=== PATIENT | female | born 1995 ===

== ENCOUNTER 2023-01-04 17:45 | Day surgery (SDC) | payer SELFPAY ==
[~2023-01-04] VITALS: Ht 154.9 cm; Wt 75.4 kg
[~2023-01-04 17:45] MED LIST: ceFAZolin INJECTION 2,000 MG in NS (IVPB) 50 ML IV ONE; metroNIDAZOLE 500MG/100ML IVPB 100 ML IV ONE
[2023-01-04 18:11] VITALS: BP 109/59
[2023-01-04] MEDS: NS IV 1000 ML 1,000 ML IV SCH (18:22)
[2023-01-04 20:17] VITALS: BP 117/72
[2023-01-05] VITALS (13 sets, daily range): BP systolic 90–109; BP diastolic 42–56
[2023-01-05] MEDS: NS IV 1000 ML 1,000 ML IV SCH ×2 (01:12→09:55)
[2023-01-05 06:11] LABS: BASOPHILS % (AUTO) 0 % (0-10); EOSINOPHILS # (AUTO) 0.1 10^3/uL (0.0-0.3); EOSINOPHILS % (AUTO) 1 % (0-10); HEMATOCRIT 31 % (35-52); HEMOGLOBIN 10.4 g/dL (11.5-16.0); LYMPHOCYTES # (AUTO) 2.9 10^3/uL (1.0-4.0); LYMPHOCYTES % (AUTO) 37 % (12-44); MEAN CORPUSCULAR HEMOGLOBIN 28 pg (25-34); MEAN CORPUSCULAR HGB CONC 33 g/dL (32-36); MEAN CORPUSCULAR VOLUME 83 fL (80-99); MEAN PLATELET VOLUME 9.2 fL (9.0-12.2); MONOCYTES # (AUTO) 0.4 10^3/uL (0.0-1.0); MONOCYTES % (AUTO) 5 % (0-12); NEUTROPHILS # (AUTO) 4.6 10^3/uL (1.8-7.8); NEUTROPHILS % (AUTO) 57 % (42-75); PLATELET COUNT 289 10^3/uL (130-400)
[2023-01-05 06:22] LABS: ALBUMIN 3.4 GM/DL (3.2-4.5); POTASSIUM 3.9 MMOL/L (3.6-5.0)
[2023-01-05 06:23] LABS: CALCIUM 8.4 MG/DL (8.5-10.1)
[2023-01-05 06:26] LABS: BILIRUBIN,TOTAL 0.3 MG/DL (0.1-1.0)
[2023-01-05 06:28] LABS: CREATININE SERUM 0.6 MG/DL (0.60-1.30)
[2023-01-05] MEDS ORDERED: metroNIDAZOLE 500MG/100ML IVPB 0 ML ONE (06:51)
[2023-01-05] MEDS ORDERED: NS (IVPB) 100 ML ONE (06:52)
[2023-01-05] MEDS ORDERED: ceFAZolin INJECTION 0 MG ONE (06:52)
[2023-01-05] MEDS ORDERED: metroNIDAZOLE 500MG/100ML IVPB 100 ML ONE (07:01)
[2023-01-05] MEDS ORDERED: ceFAZolin INJECTION 2,000 MG ONE (07:05)
[2023-01-05] MEDS ORDERED: LACTATED RINGERS 1,000 ML IV PRN (07:15)
--- NOTE | 2023-01-05 07:25 | History & Physical-Surgical ---
HPO-Surgical History of Present Illness Chief Complaint: Missed Ab/ Suspected molar Diagnosis/Surgical Indication: Suspected molar Procedure: Suction D and C Date of Surgery: Jan 05, 2023 Allergies and Home Medications Allergies Coded Allergies: Penicillins (Verified Allergy, Mild, Rash, 01/04/23) Patient Home Medication List Home Medication List Reviewed: Yes Past Vkcyinn-Bplyol-Bnfcko Hx Patient Social History Marrital Status: Smoking Status: Never a Smoker Have you traveled recently?: No Alcohol Use?: No Pt feels they are or have been: No Seasonal Allergies Seasonal Allergies: No Surgeries Yes Appendectomy Reproductive System : Yes Genitourinary No Gastrointestinal Yes Gastroesophageal Reflux Musculoskeletal No Endocrine History of Endocrine Disorders: No Are Your Blood Sugars Over 250: No HEENT History of HEENT Disorders: No Loss of Vision: Denies Hearing Impairment: Denies Cancer No Psychosocial History of Psychiatric Problem: No Integumentary History of Skin or Integumenta: No Blood Transfusions History of Blood Disorders: No Adverse Reaction to a Blood Tr: No Reviewed Nursing Assessment Reviewed/Agree w Nursing PMH: No Family Medical History Significant Family History: No Pertinent Family Hx Exam Vital Signs Vital Signs 01/05/23 01:26 Temp 36.9 Pulse 68 Resp 15 B/P (MAP) 99/50 (66) Pulse Ox 98 O2 Delivery Room Air Capillary Refill : Labs Laboratory Tests Test 01/05/23 05:59 Range/Units White Blood Count 8.0 4.3-11.0 10^3/uL Red Blood Count 3.76 L 3.80-5.11 10^6/uL Hemoglobin 10.4 L 11.5-16.0 g/dL Hematocrit 31 L 35-52 % Mean Corpuscular Volume 83 80-99 fL Mean Corpuscular Hemoglobin 28 25-34 pg Mean Corpuscular Hemoglobin Concent 33 32-36 g/dL Red Cell Distribution Width 13.7 10.0-14.5 % Platelet Count 289 130-400 10^3/uL Mean Platelet Volume 9.2 9.0-12.2 fL Immature Granulocyte % (Auto) 0 % Neutrophils (%) (Auto) 57 42-75 % Lymphocytes (%) (Auto) 37 12-44 % Monocytes (%) (Auto) 5 0-12 % Eosinophils (%) (Auto) 1 0-10 % Basophils (%) (Auto) 0 0-10 % Neutrophils # (Auto) 4.6 1.8-7.8 10^3/uL Lymphocytes # (Auto) 2.9 1.0-4.0 10^3/uL Monocytes # (Auto) 0.4 0.0-1.0 10^3/uL Eosinophils # (Auto) 0.1 0.0-0.3 10^3/uL Basophils # (Auto) 0.0 0.0-0.1 10^3/uL Immature Granulocyte # (Auto) 0.0 0.0-0.1 10^3/uL Sodium Level 138 135-145 MMOL/L Potassium Level 3.9 3.6-5.0 MMOL/L Chloride Level 110 H 98-107 MMOL/L Carbon Dioxide Level 20 L 21-32 MMOL/L Anion Gap 8 5-14 MMOL/L Blood Urea Nitrogen 7 7-18 MG/DL Creatinine 0.60 0.60-1.30 MG/DL Estimat Glomerular Filtration Rate 125 BUN/Creatinine Ratio 12 Glucose Level 86 70-105 MG/DL Calcium Level 8.4 L 8.5-10.1 MG/DL Corrected Calcium 8.9 8.5-10.1 MG/DL Total Bilirubin 0.3 0.1-1.0 MG/DL Aspartate Amino Transf (AST/SGOT) 17 5-34 U/L Alanine Aminotransferase (ALT/SGPT) 27 0-55 U/L Alkaline Phosphatase 56 40-136 U/L Total Protein 6.0 L 6.4-8.2 GM/DL Albumin 3.4 3.2-4.5 GM/DL General Appearance: Alert, Oriented X3 HEENT: Atraumatic Respiratory: Clear to Auscultation Neuro: Normal Gait Psych/Mental Status: Mental Status NL Assessment/Plan Admission Diagnosis Diagnosis: Missed Ab Suspected molar Plan: Suction D and C JOLYNN CASTAÑEDA DO Jan 05, 2023 07:25
--- NOTE | 2023-01-05 07:27 | Discharge Inst-Women's Service ---
Discharge Inst-Women's Serv Depart Medication/Instructions New, Converted or Re-Newed RX: Transmitted to Pharmacy Final Diagnosis Missed ab Problems Reviewed?: Yes Consults/Follow Up Orders/Referrals Dr. Whitaker in one week for HCG check. Follow weekly until zero Activity Activity: Activity as Tolerated Driving Instructions: No Driving for 1 Week NO SMOKING: NO SMOKING Nothing Inside Vagina: No Douching, No [place], No Tampons Diet Discharge Diet: No Restrictions Symptoms to Report to : Bleeding Excessive, Pain Increased, Fever Over 101 Degrees F, Vaginal Bleeding Increase, Questions/Concerns For Any Problems or Questions: Contact Your Physician JOLYNN CASTAÑEDA DO Jan 05, 2023 07:27
[2023-01-05] MEDS ORDERED: IBUP-1773 PO (07:29)
[2023-01-05] MEDS ORDERED: D5 LR IV SOLUTION 1,000 ML IV SCH (07:30)
[2023-01-05] MEDS ORDERED: HYDROcodone/APAP 5 MG/325 MG (LORTAB) TAB PO PRN (07:30)
[2023-01-05] MEDS ORDERED: KETOROLAC 30 MG/ML VIAL IVP ONE (07:30)
[2023-01-05] MEDS ORDERED: ONDANSETRON 4 MG/2 ML (SDV) Z0FRAN IVP PRN ×2 (07:30→09:00)
[2023-01-05] MEDS ORDERED: proPOfol 200 MG/20 ML (DIPRIVAN) VIAL IV ONE (07:31)
[2023-01-05] MEDS ORDERED: LIDOCAINE PF 2% 5 ML (XYLOCAINE) VIAL ONE (07:31)
[2023-01-05] MEDS ORDERED: fentaNYL INJ 100 MCG/2 ML AMP ONE (07:31)
[2023-01-05] MEDS ORDERED: ONDANSETRON 4 MG/2 ML (SDV) Z0FRAN ONE (07:31)
[2023-01-05] MEDS ORDERED: MIDAZOLAM 2 MG/2 ML (VERSED) VIAL ONE (07:32)
[2023-01-05] MEDS ORDERED: TRANEXAMIC ACID 100 MG/ML 10 ML INJECTION ONE (07:35)
[2023-01-05] MEDS ORDERED: METHYLERGONOVINE 0.2 MG/ML (METHERGINE) AMP ONE (08:20)
[2023-01-05] MEDS ORDERED: SEVOFLURANE (ULTANE) 15 ML INHAL SOLN ONE (08:41)
--- NOTE | 2023-01-05 08:49 | Anesthesia-General Post-Op ---
General Patient Condition Mental Status/LOC: Same as Preop Cardiovascular: Satisfactory Nausea/Vomiting: Absent Respiratory: Satisfactory Pain: Controlled Complications: Absent Post Op Complications Complications None Follow Up Care/Instructions Patient Instructions None needed. Anesthesia/Patient Condition Patient Condition Patient is doing well, no complaints, stable vital signs, no apparent adverse anesthesia problems. No complications reported per nursing. FLACO GROSS CRNA Jan 05, 2023 08:49
[2023-01-05] MEDS ORDERED: morphine INJ 10 MG/ML 1ML (SYR OR VIAL) IVP ONE (09:00)
[2023-01-05] MEDS ORDERED: MEPERIDINE (DEMEROL) INJ 50 MG/ML IVP ONE (09:00)
[2023-01-05] MEDS ORDERED: morphine INJ 10 MG/ML 1ML (SYR OR VIAL) ONE (09:02)
--- NOTE | 2023-01-05 20:10 | OPERATIVE REPORT ---
PREOPERATIVE DIAGNOSES: 1. A 27-year-old female with missed . 2. Suspected molar . POSTOPERATIVE DIAGNOSES: 1. A 27-year-old female with missed . 2. Suspected molar . PROCEDURE: Suction D and C. SURGEON: Jolynn Castañeda DO ANESTHESIA: LMA with general. ESTIMATED BLOOD LOSS: 1000 mL URINE OUTPUT: 100 mL drained at the end of the procedure. FLUIDS: 800 mL lactated Ringer's solution. FINDINGS: Copious amounts of products of conception. Grossly normal-appearing external female genitalia. SPECIMEN SENT: Products of conception. INDICATIONS FOR PROCEDURE: This 27-year-old female was a patient I was contacted yesterday by [facility] for finding of multicystic appearing endometrial masses consistent with a finding of molar . The patient's hCG levels were as high as 140,000. There is no viable noted. Due to this, I discussed with the patient's provider direct admission to the hospital and plan for suction D and C the following morning. This morning, I reviewed with the patient the risk of the procedure including bleeding, infection and damage in the uterus itself. The patient and her are agreeable to do this. This was all done with the translation line. I also anticipated having blood loss and therefore, had been administered TXA preoperatively. The patient was then consented and taken to the operating room where general anesthesia was administered. OPERATIVE REPORT IN DETAIL: Once anesthesia was administered, The patient was placed in dorsal lithotomy position, prepped and draped in normal sterile fashion. A timeout was performed. A weighted speculum was inserted to the patient's vagina. Right angle retractor was utilized. Cervix was grasped at 12 o'clock position using a single tooth tenaculum. I then gently sounded the uterine cavity and that was found to be approximately 13 cm. I then gently dilated the cervix using Hegar dilators to maximum dilatation of 1.2 cm, at which point, I selected a #12 rigid suction curette and introduced into the uterine cavity. I applied [place] suction and 1 suction, which is 70 mmHg. I methodically cleared the endometrium of all products of conception. This was done on several different passes. The suction canister has to be changed out a total of 4 times due to the amount of tissue that we retrieved via the suction. The bleeding is significant at first; however, slows down as the tissue is evacuated from the uterus. A gentle sharp curettage was performed and then a final single pass with the [place] curette is made to ensure there was no residual tissue left behind in the uterus. During the process of doing this due to the blood loss, I have anesthesia administered 0.2 mg of Methergine IM with good uterine tone response. After the final pass with the [place] suction curette, there was a little to no bleeding noted from the external cervical os. I removed all the instruments from the cervix. There is a small laceration of the anterior lip of the cervix, which was reapproximated using 3-0 Vicryl suture in a running locked fashion, after which there was no active bleeding noted from the external cervical os or the cervix itself. All instruments were removed from the patient's vagina. The patient tolerated the procedure well and was sent to recovery area in stable condition. Lap and sponge count was correct at the end of the procedure. Instrument counts correct as well. Job ID: [id number] DocumentID: [id number] Dictated Date: 01/05/2023 09:55:26 Form Maker Date: 01/05/2023 20:03:00 Dictated By: JOLYNN CASTAÑEDA DO
== END 2023-01-05 14:15 | disposition home or self-care (01) ==
LOC: WS 17:45 → WSo 17:45 → UNDOADMOB 17:45 → WS 17:45 → UNDODISOB 01-05 14:15 → WSo 01-05 14:15
PROVIDERS: ATTEND Family Medicine
DX: O01.9 Hydatidiform mole, unspecified (principal)
CPT/HCPCS: 36415; 80053; 85025; 86850; 86900; 86901; 88305; 88341; 88342; 96360; 96361